=== PATIENT | male | born 1955 | race Caucasian/White ===

== ENCOUNTER 2017-11-25 06:13 | Emergency (ER) | END 2017-11-25 06:54 | disposition home or self-care (01) ==

== ENCOUNTER 2017-11-27 11:10 | Emergency (ER) | END 2017-11-27 12:38 | disposition home or self-care (01) ==

== ENCOUNTER 2018-06-29 10:47 | Emergency (ER) | END 2018-06-29 15:06 | disposition short-term general hospital (02) ==

== ENCOUNTER 2018-10-26 04:19 | Emergency (ER) | payer OTHER ==
[~2018-10-26] VITALS: Ht 167.6 cm; Wt 64.8 kg
[2018-10-26 04:21] VITALS: Ht 167.6 cm; Wt 64.8 kg
[2018-10-26] MEDS ORDERED: FUROSEMIDE 40 MG INJ IV ONE (06:00)
--- NOTE | 2018-10-26 06:21 | ERD ---
ER Documentation Chief Complaint Chief Complaint sob/cp x 1 day HPI This is a 63-year-old male with a past medical history of diabetes, chronic kidney disease who is presenting with significant hypertension and shortness of breath. The patient woke up this evening from sleep feeling like he was drowning. The patient reports mild improvement with change in position, going from laying to sitting, but he continued to feel extremely dyspneic. The patient also endorses moderate pressure-like nonradiating nonexertional mid substernal and left-sided chest pain. The patient does report mild lightheadedness this evening as well. He denies diaphoresis. He denies nausea or vomiting. The patient denies feeling sick recently. The patient denies fever or chills. The patient has had no headache or vision changes. The patient does not endorse neck or back pain. The patient denies abdominal pain. The patient denies changes to bowel movements or urination. The patient has had no focal deficits. The patient has had no weakness or numbness or tingling to the face or extremities. ROS All systems reviewed and are negative except as per history of present illness. Medications Home Meds No Active Prescriptions or Reported Meds Allergies Allergies: Coded Allergies: No Known Allergy (Unverified , 10/26/18) PMhx/Soc History of Surgery: No Anesthesia Reaction: No Hx Neurological Disorder: No Hx Respiratory Disorders: No Hx Cardiac Disorders: Yes (Diabetes) Hx Psychiatric Problems: No Hx Miscellaneous Medical Probl: Yes (Chronic kidney disease) Hx Alcohol Use: Yes Hx Substance Use: No Hx Tobacco Use: No (denies ) Smoking Status: Never smoker FmHx Family History: diabetes Physical Exam Vitals Vital Signs Date Temp Pulse Resp B/P (MAP) Pulse Ox O2 O2 Flow FiO2 Time Delivery Rate 10/26/18 98.0 83 17 183/95 100 Room Air 05:55 (124) 10/26/18 98.0 85 18 179/134 97 Room Air 05:06 (149) 10/26/18 Nasal 3 04:53 Cannula 10/26/18 98.0 96 18 213/98 97 04:21 (136) Physical Exam Const: No acute distress Head: Atraumatic Eyes: Normal Conjunctiva ENT: Normal External Ears, Nose and Mouth. Neck: Full range of motion. No meningismus. Resp: Clear to auscultation bilaterally Cardio: Regular rate and rhythm, no murmurs Abd: Soft, non tender, non distended. Normal bowel sounds Skin: No petechiae or rashes Back: No midline or flank tenderness Ext: No cyanosis, or edema Neur: Awake and alert Psych: Normal Mood and Affect Result Diagram: 10/26/18 0501 10/26/18 0501 Results 24 hrs Laboratory Tests Test 10/26/18 05:01 White Blood Count 7.6 10^3/ul Red Blood Count 3.85 10^6/ul Hemoglobin 11.6 g/dl Hematocrit 33.3 % Mean Corpuscular Volume 86.5 fl Mean Corpuscular Hemoglobin 30.1 pg Mean Corpuscular Hemoglobin Concent 34.8 g/dl Red Cell Distribution Width 12.6 % Platelet Count 196 10^3/UL Mean Platelet Volume 11.5 fl Immature Granulocytes % 0.400 % Neutrophils % 67.1 % Lymphocytes % 19.7 % Monocytes % 9.9 % Eosinophils % 2.5 % Basophils % 0.4 % Nucleated Red Blood Cells % 0.0 /100WBC Immature Granulocytes # 0.030 10^3/ul Neutrophils # 5.1 10^3/ul Lymphocytes # 1.5 10^3/ul Monocytes # 0.8 10^3/ul Eosinophils # 0.2 10^3/ul Basophils # 0.0 10^3/ul Nucleated Red Blood Cells # 0.0 10^3/ul Sodium Level 141 mmol/L Potassium Level 4.0 mmol/L Chloride Level 108 mmol/L Carbon Dioxide Level 27 mmol/L Anion Gap 6 Blood Urea Nitrogen 23 mg/dl Creatinine 1.30 mg/dl Est Glomerular Filtrat Rate mL/min 56 mL/min Glucose Level 126 mg/dl Calcium Level 9.3 mg/dl Troponin I 0.024 ng/ml B-Type Natriuretic Peptide 1180 PG/ML Current Medications Medications Dose Sig/Zohaib Start Time Status Last (Trade) Ordered Route PRN Stop Time Admin Dose Reason Admin Furosemide 40 mg ONCE ONCE 10/26/18 DC 10/26/18 (Lasix) IV 06:00 05:59 10/26/18 06:01 Procedures/MDM MDM The patient's presentation warrants further investigation. Previous medical records, if available, were reviewed. LABS The patient's laboratory testing was obtained and reviewed. No emergent treatment was required unless described below. CBC: No E/o of systemic infection or thrombocytopenia. Mild normocytic anemia, not emergent. Chemistry: No E/o severe acidosis or alkalosis or diabetic ketoacidosis. Elevated BUN and creatinine, likely related to his chronic kidney disease. Troponin: Not negative, but still within normal limits. BNP: E/o heart failure EKG EKG read by me: Rate/Rhythm: Regular rate and rhythm at a rate of 96 Intervals: Normal QRS and QTc. Prolonged OR interval indicating a first- degree AV block. [place]: Normal Impression: Poor R wave progression without evidence of acute ischemia or arrhythmia IMAGING Imaging and Radiology interpretation reviewed. CXR FINDINGS: The pulmonary vascular markings are now more prominent and are less distinct throughout, with perihilar and lower lung field predominance. There is blunting of the right and perhaps also left costophrenic sulci. No superimposed infiltrate or pneumothorax. The heart size and mediastinal contours are stable and within normal limits. Trace aortic arch calcified atherosclerosis is seen. The osseous structures are intact with degenerative changes present. IMPRESSION: New findings which are most suggestive of mild CHF. Follow-up is recommended to ensure clearing. Calcified aortic atherosclerosis. Electronically viewed and signed by Jes Newman Physician on 10/26/2018 05:19 TREATMENT/DISPOSITION The patient's presenting with accelerated hypertension and flash pulmonary edema. The patient endorses symptoms consistent with paroxysmal nocturnal dyspnea and an acute CHF exacerbation. The patient was not hypoxic, but he was severely dyspneic. The patient's blood pressure started to come down, but he is still hypertensive. The patient was given a dose of Lasix in the emergency department. The patient does not endorse a history of heart failure or hypertension. I am concerned about his new onset of symptoms and I feel that he may benefit from inpatient evaluation and management. The patient's chest xray does not reveal pneumonia or pneumothorax or pleural effusions. The patient does not have a widened mediastinum and does not have signs or symptoms concerning for thoracic aortic aneurysm or dissection. The patient does not have pneumomediastinum or signs concerning for esophageal tear or rupture. The patient has no clinical or radiographic signs of pericardial effusion or tamponade. The patient does not have pneumoperitoneum and I have decreased suspicion of viscus perforation as possible referred pain. The patient does not have a diagnosis of COPD and is not wheezing today. The patient is not tachypneic or hypoxic. The patient is breathing comfortably and without pleuritic pain. The patient is not on hormonal therapy. The patient has no history of clotting or bleeding disorders. The patient has no calf tenderness. The patient has had no hemoptysis. I have decreased suspicion for PE. The patient's troponin and EKG are reassuring. I have low suspicion for acute coronary syndrome. At this time, I feel that the patient requires admission for further evaluation and management. The patient has [employer]. We are still awaiting a call back from the provider. The patient will be signed out to Dr. Lindsay at 6 AM on October 26, 2018 pending admission. Disclaimer: Inadvertent spelling and grammatical errors are likely due to EHR/dictation software use and do not reflect on the overall quality of patient care. Note that the electronic time recorded on this note does not necessarily reflect the actual time of the patient encounter. Departure Diagnosis: Primary Impression: Acute exacerbation of CHF (congestive heart failure) Heart failure type: unspecified Qualified Codes: I50.9 - Heart failure, unspecified Additional Impressions: Accelerated hypertension Flash pulmonary edema Shortness of breath Paroxysmal nocturnal dyspnea Elevated brain natriuretic peptide (BNP) level Kidney disease Normocytic anemia Condition: Stable ANTWON ALEJANDRE MD Oct 26, 2018 06:21
[2018-10-26 10:22] VITALS: BP 130/76; PULSE 80; RESP 18
== END 2018-10-26 10:23 | disposition short-term general hospital (02) ==
LOC: E/R 04:19
DX: I50.9 Heart failure, unspecified (principal); J81.1 Chronic pulmonary edema; R06.00 Dyspnea, unspecified; R79.89 Other specified abnormal findings of blood chemistry; D64.9 Anemia, unspecified; N18.9 Chronic kidney disease, unspecified; E11.22 Type 2 diabetes mellitus with diabetic chronic kidney disease; I13.0 Hypertensive heart and chronic kidney disease with heart failure and stage 1 through stage 4 chronic kidney disease, or unspecified chronic kidney disease
CPT/HCPCS: 36415; 71045; 80048; 83880; 84484; 85025; 93005; 96374; J1940; Z7502